=== PATIENT | female | born 1985 | race Hispanic/Latino ===

== ENCOUNTER 2019-11-13 17:12 | Emergency (ER) | payer SELFPAY ==
[2019-11-13] MEDS ORDERED: NA CHLORIDE 0.9% 1,000 ML ONE (17:32)
[2019-11-13] MEDS ORDERED: LORazepam 2 MG/ML VIAL ONE (17:32)
[2019-11-13 17:36] LABS: Absolute Lymphocytes (CBC) 3.2 K/uL (0.7-4.9); Basophils % 0.5 % (0-1.3); Hematocrit 38.9 % (36.0-45.0); Lymphocytes % 28.3 % (15.3-44.8); MPV 10.3 fL (7.6-11.3); RBC Red Blood Cell Count 4.59 M/uL (3.86-4.86)
[2019-11-13 17:50] LABS: BUN Blood Urea Nitrogen 10 mg/dL (7-18); Bicarbonate 23 mmol/L (21-32); Glucose Level 254 mg/dL (74-106); Potassium 3.7 mmol/L (3.5-5.1); Sodium Level 137 mmol/L (136-145)
[2019-11-13] MEDS ORDERED: INSULIN -REGULAR HUMAN 50 UNIT/0.5 ML ML ONE (18:26)
[2019-11-13 19:14] LABS: Urine Blood 2+ (NEG); Urine Glucose 2+ (NEG); Urine Protein NEGATIVE (NEG); Urine Specific Gravity 1.025 (1.005-1.030)
--- NOTE | 2019-11-13 19:21 | ER ---
Nurse's Notes [facility] Name: Iris Adamson Age: 34 yrs Sex: Female : 1985 Arrival Date: 11/13/2019 Time: 17:10 Bed 7 Private MD: Diagnosis: Other reactions to severe stress;Hyperglycemia, unspecified Presentation: 11/13 17:10 Presenting complaint: EMS states: HYPERGLYCEMIA WITH NAUSEA AND DIZZINESS. Transition bp of care: patient was not received from another setting of care. Onset of symptoms was November 13, 2019. Risk Assessment: Do you want to hurt yourself or someone else? Patient reports no desire to harm self or others. Initial Sepsis Screen: Does the patient meet any 2 criteria? No. Patient's initial sepsis screen is negative. Does the patient have a suspected source of infection? No. Patient's initial sepsis screen is negative. Care prior to arrival: Medication(s) given: Normal saline infusion, 1000 mL, IV initiated. 20 GA, in the left antecubital area, Glucose check: 308. 17:10 Method Of Arrival: EMS: [facility] bp 17:10 Acuity: CEDRICK 3 bp Triage Assessment: 17:11 General: Appears in no apparent distress. comfortable, obese, Behavior is calm, bp cooperative, appropriate for age. Pain: Denies pain. EENT: No deficits noted. Neuro: No deficits noted. Cardiovascular: Rhythm is sinus rhythm. Respiratory: No deficits noted. GI: Reports nausea. : No signs and/or symptoms were reported regarding the genitourinary system. Derm: No deficits noted. Musculoskeletal: No deficits noted. 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 - Coronavirus screen:: The patient has NOT traveled to [place] in the past 14 days. Proceed with normal triage process as indicated. The patient has NOT had contact with known/suspected case of Coronavirus? Proceed with normal triage procedures. - Social history:: Smoking status: Patient denies any tobacco usage or history of. - Ebola Screening: : No symptoms or risks identified at this time. Screenin:13 Abuse screen: Denies threats or abuse. Denies injuries from another. Nutritional bp screening: No deficits noted. Tuberculosis screening: No symptoms or risk factors identified. Fall Risk None identified. Assessment: 17:13 General: SEE TRIAGE NOTE. bp 18:15 Reassessment: Patient appears in no apparent distress at this time. Patient and/or hb family updated on plan of care and expected duration. Pain level reassessed. Patient is alert, oriented x 3, equal unlabored respirations, skin warm/dry/pink. 19:21 Reassessment: Patient appears in no apparent distress at this time. [place] talked rv to the patient and the relatives at the bedside regarding results of diagnostics and the plan of care. patient agreed. patient is for discharge after the infusion of the NS bolus.l. 20:30 Reassessment: Patient appears in no apparent distress at this time. Patient and/or rv family updated on plan of care and expected duration. Pain level reassessed. Patient is alert, oriented x 3, equal unlabored respirations, skin warm/dry/pink. patient felt comfortable and better after medications and fluid administration. discharged with family member, ambulatory. instructions given and explained. Vital Signs: 17:11 BP 145 / 88; Pulse 89; Resp 17; Temp 97.8; Pulse Ox 100% ; Weight 90.72 kg; Height 5 bp ft. 2 in. (157.48 cm); 18:19 BP 134 / 91; Pulse 87; Resp 16; Pulse Ox 100% on R/A; hb 19:22 BP 107 / 76; Pulse 91; Resp 17; Pulse Ox 100% on R/A; rv 17:11 Body Mass Index 36.58 (90.72 kg, 157.48 cm) bp ED Course: 17:10 Patient arrived in ED. bp 17:11 Triage completed. bp 17:11 Arm band placed on. bp 17:13 Patient has correct armband on for positive identification. Bed in low position. Call bp light in reach. Side rails up X2. 17:13 Maintain EMS IV. Dressing intact. Good blood return noted. Site clean \T\ dry. Gauge \T\ bp site: 20 GAUGE LEFT AC. 17:14 Gertrude Rosenberg [facility]NP-C [facility]. snw 17:14 Clement Burrows MD is Attending Physician. snw 17:21 Ricky Guillen, RN is Primary Nurse. bp 19:14 Primary Nurse role handed off by Ricky Guillen, RN hb 19:14 Sheela Patricia, RN is Primary Nurse. hb 19:45 Inserted saline lock: 22 gauge in right hand, using aseptic technique. rv 20:31 No provider procedures requiring assistance completed. IV discontinued, intact, rv bleeding controlled, No redness/swelling at site. Pressure dressing applied. Administered Medications: 17:32 Drug: Ativan 1 mg Route: IVP; Site: left antecubital; hb 20:30 Follow up: Response: No adverse reaction rv 17:32 Drug: NS 0.9% 1000 ml Route: IV; Rate: 1 bolus; Site: left antecubital; hb 20:30 Follow up: IV Status: Completed infusion; IV Intake: 1000ml rv 18:27 Drug: Insulin Regular Human 5 units {Co-Signature: giselle (Sheela Patricia RN).} Route: IVP; bp Site: left antecubital; 18:45 Follow up: Response: Blood sugar is lowered bp 18:29 Drug: Insulin Regular Human 5 units {Co-Signature: giselle (Sheela Patricia RN).} Route: bp Sub-Q; Site: abdomen; 18:44 Follow up: Response: Blood sugar is lowered bp Intake: 20:30 IV: 1000ml; Total: 1000ml. rv Outcome: 19:19 Discharge ordered by . snw 20:31 Discharged to home ambulatory, with family. rv 20:31 Condition: improved 20:31 Discharge instructions given to patient, family, Instructed on discharge instructions, follow up and referral plans. Demonstrated understanding of instructions, follow-up care. 20:32 Patient left the ED. rv Signatures: Gertrude Rosenberg, SENIOR APPLICATIONS ANALYST-C SENIOR APPLICATIONS ANALYST-Csnw Sheela Patricia RN RN Ricky Guillen, RN RN Ruddy Ridley RN RN rv Sheela desai
--- NOTE | 2019-11-13 19:21 | EDPHYS ---
Physician Documentation [facility] Name: Iris Adamson Age: 34 yrs Sex: Female : 1985 Arrival Date: 11/13/2019 Time: 17:10 Bed 7 Private MD: ED Physician Clement Burorws HPI: 11/13 17:25 This 34 yrs old Female presents to ER via EMS with complaints of High Blood snw Sugar. 17:25 The patient or guardian reports hyperglycemia, N/V, lightheaded. Onset: The snw symptoms/episode began/occurred suddenly, at work, co-workers said she became pale and they called EMS. Associated signs and symptoms: Pertinent positives: diaphoresis, nausea, vomiting. Current symptoms: In the emergency department the patient's symptoms have improved, moderately. It is unknown whether or not the patient has had similar symptoms in the past. appt with Lainey Cordero, Monday. To change Metformin to Victoza and something else as while pt has been stressed the Metformin has not been helping much. 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 - Coronavirus screen:: The patient has NOT traveled to [place] in the past 14 days. Proceed with normal triage process as indicated. The patient has NOT had contact with known/suspected case of Coronavirus? Proceed with normal triage procedures. - Social history:: Smoking status: Patient denies any tobacco usage or history of. - Ebola Screening: : No symptoms or risks identified at this time. ROS: 17:23 Eyes: Negative for injury, pain, redness, and discharge, ENT: Negative for injury, snw pain, and discharge, Neck: Negative for injury, pain, and swelling, Cardiovascular: Negative for chest pain, palpitations, and edema, Respiratory: Negative for shortness of breath, cough, wheezing, and pleuritic chest pain, Abdomen/GI: Negative for abdominal pain, diarrhea, and constipation, + nausea and vomiting Back: Negative for injury and pain, : Negative for injury, bleeding, discharge, and swelling, MS/Extremity: Negative for injury and deformity, Skin: Negative for injury, rash, and discoloration, Neuro: Negative for headache, weakness, numbness, tingling, and seizure, Psych: Negative for depression, anxiety, suicide ideation, homicidal ideation, and hallucinations. 17:23 Constitutional: Positive for malaise, "very stressed". Exam: 17:23 Constitutional: This is a well developed, well nourished patient who is awake, alert, snw and in no acute distress. Head/Face: Normocephalic, atraumatic. Eyes: Pupils equal round and reactive to light, extra-ocular motions intact. Lids and lashes normal. Conjunctiva and sclera are non-icteric and not injected. Cornea within normal limits. Periorbital areas with no swelling, redness, or edema. ENT: Nares patent. No nasal discharge, no septal abnormalities noted. Tympanic membranes are normal and external auditory canals are clear. Oropharynx with no redness, swelling, or masses, exudates, or evidence of obstruction, uvula midline. Mucous membranes moist. Neck: Trachea midline, no thyromegaly or masses palpated, and no cervical lymphadenopathy. Supple, full range of motion without nuchal rigidity, or vertebral point tenderness. No Meningismus. Chest/axilla: Normal chest wall appearance and motion. Nontender with no deformity. No lesions are appreciated. Cardiovascular: Regular rate and rhythm with a normal S1 and S2. No gallops, murmurs, or rubs. Normal PMI, no JVD. No pulse deficits. Respiratory: Lungs have equal breath sounds bilaterally, clear to auscultation and percussion. No rales, rhonchi or wheezes noted. No increased work of breathing, no retractions or nasal flaring. Abdomen/GI: Soft, non-tender, with normal bowel sounds. No distension or tympany. No guarding or rebound. No evidence of tenderness throughout. Back: No spinal tenderness. No costovertebral tenderness. Full range of motion. Skin: Warm, dry with normal turgor. Normal color with no rashes, no lesions, and no evidence of cellulitis. MS/ Extremity: Pulses equal, no cyanosis. Neurovascular intact. Full, normal range of motion. Neuro: Awake and alert, GCS 15, oriented to person, place, time, and situation. Cranial nerves II-XII grossly intact. Motor strength 5/5 in all extremities. Sensory grossly intact. Cerebellar exam normal. Normal gait. Psych: Awake, alert, with orientation to person, place and time. Behavior, mood, and affect are within normal limits. Vital Signs: 17:11 BP 145 / 88; Pulse 89; Resp 17; Temp 97.8; Pulse Ox 100% ; Weight 90.72 kg; Height 5 bp ft. 2 in. (157.48 cm); 18:19 BP 134 / 91; Pulse 87; Resp 16; Pulse Ox 100% on R/A; hb 19:22 BP 107 / 76; Pulse 91; Resp 17; Pulse Ox 100% on R/A; rv 17:11 Body Mass Index 36.58 (90.72 kg, 157.48 cm) bp MDM: 17:15 Patient medically screened. snw 19:31 Data reviewed: vital signs, nurses notes. Data interpreted: Pulse oximetry: on room air snw is 100 %. Interpretation: normal. Counseling: I had a detailed discussion with the patient and/or guardian regarding: the historical points, exam findings, and any diagnostic results supporting the discharge/admit diagnosis, lab results, the need for outpatient follow up, to return to the emergency department if symptoms worsen or persist or if there are any questions or concerns that arise at home. Special discussion: Based on the history and exam findings, there is no indication for further emergent testing or inpatient evaluation. I discussed with the patient/guardian the need to see the primary care provider for further evaluation of the symptoms. 11/13 17:19 Order name: CBC with Diff [facility] 11/13 17:19 Order name: Chem 7 [facility] 11/13 17:19 Order name: Urine Culture [facility] 11/13 17:19 Order name: Urine Microscopic Only [facility] 11/13 17:42 Order name: CBC with Automated Diff; Complete Time: 17:43 EDMS 11/13 17:54 Order name: Basic Metabolic Panel; Complete Time: 18:03 EDMS 11/13 18:57 Order name: Glucose, Ancillary Testing; Complete Time: 18:59 EDMS 11/13 19:10 Order name: Urine Dipstick--Ancillary (enter results) sd 11/13 19:10 Order name: Urine --Ancillary (enter results) sd 11/13 19:16 Order name: Urine --Ancillary; Complete Time: 19:17 EDMS 11/13 19:16 Order name: Urine Dipstick-Ancillary; Complete Time: 19:17 EDMS 11/13 17:19 Order name: Urine Test (obtain specimen); Complete Time: 19:07 snw 11/13 17:19 Order name: Urine Dipstick-Ancillary (obtain specimen); Complete Time: 19:07 snw 12 18:32 Order name: FSBS; Complete Time: 18:44 snw Administered Medications: 17:32 Drug: Ativan 1 mg Route: IVP; Site: left antecubital; hb 20:30 Follow up: Response: No adverse reaction rv 17:32 Drug: NS 0.9% 1000 ml Route: IV; Rate: 1 bolus; Site: left antecubital; hb 20:30 Follow up: IV Status: Completed infusion; IV Intake: 1000ml rv 18:27 Drug: Insulin Regular Human 5 units {Co-Signature: giselle (Sheela Patricia RN).} Route: IVP; bp Site: left antecubital; 18:45 Follow up: Response: Blood sugar is lowered bp 18:29 Drug: Insulin Regular Human 5 units {Co-Signature: giselle (Sheela Patricia RN).} Route: bp Sub-Q; Site: abdomen; 18:44 Follow up: Response: Blood sugar is lowered bp Disposition: 11/14 07:07 Co-signature as Attending Physician, Clement Burrows MD I agree with the assessment and kdr plan of care. Disposition: 11/13/19 19:19 Discharged to Home. Impression: Other reactions to severe stress, Hyperglycemia, unspecified. - Condition is Stable. - Discharge Instructions: Diabetes and Sick Day Management, Hyperglycemia, Blood Glucose Monitoring, Adult, Stress and Stress Management. - Work release form, Medication Reconciliation Form, Thank You Letter, Antibiotic Education, Prescription Opioid Use form. - Follow up: Emergency Department; When: As needed; Reason: Worsening of condition. Follow up: Private Physician; When: 1 - 2 days; Reason: Recheck today's complaints, Continuance of care, Re-evaluation by your physician. Signatures: Dispatcher [facility] HospitalClement Michael MD MD kdr Therrien, Shelly, SUPERVISOR WIRE ROPE FABRICATION-C SUPERVISOR WIRE ROPE FABRICATION-Csnw Sheela Patricia RN RN hb Peltier, Brian, RN RN bp Ruddy Aguilar RN RN Sheela Patricia RN Corrections: (The following items were deleted from the chart) 11/13 20:32 19:19 11/13/2019 19:19 Discharged to Home. Impression: Other reactions to severe rv stress; Hyperglycemia, unspecified. Condition is Stable. Forms are Medication Reconciliation Form, Thank You Letter, Antibiotic Education, Prescription Opioid Use. Follow up: Emergency Department; When: As needed; Reason: Worsening of condition. Follow up: Private Physician; When: 1 - 2 days; Reason: Recheck today's complaints, Continuance of care, Re-evaluation by your physician. snw
[2019-11-15 02:05] VITALS: O2SAT 100
[2019-11-15 02:07] VITALS: BP 107/76
== END 2019-11-13 20:32 | disposition home or self-care (01) ==
LOC: ER 17:12
DX: E11.65 Type 2 diabetes mellitus with hyperglycemia (principal); F43.8 Other reactions to severe stress
CPT/HCPCS: 36415; 80048; 81003; 81025; 82947; 85025; 96361; 96372; 96374; 96375; 99284; J7030